=== PATIENT | male | born 1990 | race Caucasian/White ===

== ENCOUNTER 2019-06-17 15:28 | Emergency (ER) | payer SELFPAY ==
[~2019-06-17] VITALS: Ht 177.8 cm; Wt 88.6 kg
[2019-06-17 15:39] VITALS: BP 123/89
[2019-06-17] MEDS ORDERED: SULF1TAB49 PO (15:54)
[2019-06-17] MEDS ORDERED: MUPI22OI30 TOP (15:54)
--- NOTE | 2019-06-17 16:04 | NUR ---
SEEN, ASSESSED AND DISCHARGED PRIOR CATRINA MARMOLEJO
== END 2019-06-17 16:09 | disposition home or self-care (01) ==
LOC: ER 15:29
DX: L03.115 Cellulitis of right lower limb (principal); L03.116 Cellulitis of left lower limb; L73.9 Follicular disorder, unspecified; Z88.8 Allergy status to other drugs, medicaments and biological substances; Z79.2 Long term (current) use of antibiotics
CPT/HCPCS: 99283